=== PATIENT | female | born 1985 | race Caucasian/White ===

== ENCOUNTER 2022-08-12 16:19 | Inpatient (IN) | payer BC ==
[2022-08-12 17:00] LABS: #Basophils 0.1 thou/uL (0.0-0.2); #Lymphocytes 2.4 thou/uL (1.20-3.40); #Monocytes 0.8 thou/uL (0.11-0.59); #Neutrophils 11.3 thou/uL (1.40-6.50); %Basophils 0.6 % (0.0-1.0); %Eosinophils 0.2 % (0.0-10.0); %Lymphocytes 16.2 % (21.0-51.0); %Monocytes 5.7 % (0.0-10.0); %Neutrophils 77.3 % (42.0-75.0); Hemoglobin 12.4 g/dL (12.0-16.0); Mean Corpuscular Hemoglobin 29.9 pg (27.0-31.0); Mean Corpuscular Volume 90.7 fl (78.0-98.0); Mean Platelet Volume 7.7 fL (7.4-10.4); Platelet Count 274 10x3/uL (130-400); RBC Distribution Width 12.1 % (11.5-14.5); Red Blood Cell (RBC) Count 4.15 mill/uL (4.20-5.40); White Blood Cell (WBC) Count 14.6 10x3/uL (4.8-10.8)
[2022-08-12 17:11] LABS: INR-International Normal Ratio 0.9; Prothrombin Time 12.9 sec (12.0-14.7)
[2022-08-12 17:16] LABS: ALT (SGPT) 17 U/L (8-55); AST (SGOT) 17 U/L (5-34); Albumin 4.4 g/dL (3.5-5.0); Alkaline Phosphatase 49 U/L (40-110); Anion Gap 16 mmol/L (10-20); BUN (Urea Nitrogen) 21 mg/dL (7.0-18.7); Bilirubin, Total 0.3 mg/dL (0.2-1.2); Calc. Creatinine Clearance 0 mL/min (70-130); Calcium 9.3 mg/dL (7.8-10.44); Carbon Dioxide 20 mmol/L (22-29); Chloride 106 mmol/L (98-107); Estimated GFR 103; Globulin 2.7 g/dL (2.4-3.5); Glucose 159 mg/dL (70-105); Potassium 3.1 mmol/L (3.5-5.1); Protein, Total 7.1 g/dL (6.0-8.3); Sodium 139 mmol/L (136-145)
[2022-08-12 17:17] LABS: ALT (SGPT) 16 U/L (8-55); AST (SGOT) 19 U/L (5-34); Albumin 4.4 g/dL (3.5-5.0); Alkaline Phosphatase 48 U/L (40-110); Anion Gap 16 mmol/L (10-20); BUN (Urea Nitrogen) 23 mg/dL (7.0-18.7); Bilirubin, Total 0.3 mg/dL (0.2-1.2); Calc. Creatinine Clearance 0 mL/min (70-130); Calcium 9.3 mg/dL (7.8-10.44); Carbon Dioxide 19 mmol/L (22-29); Chloride 106 mmol/L (98-107); Estimated GFR 98; Globulin 2.7 g/dL (2.4-3.5); Glucose 161 mg/dL (70-105); Potassium 3.2 mmol/L (3.5-5.1); Protein, Total 7.1 g/dL (6.0-8.3); Sodium 138 mmol/L (136-145)
[2022-08-12] MEDS ORDERED: Ondansetron PF 4 MG/2 ML Vial ONE ×2 (17:21→17:40)
[2022-08-12] MEDS ORDERED: TETANUS, DIPHTHERIA TOX,ADULT (TDVAX) 0.5 ML VIAL IM ONE (17:30)
[2022-08-12] MEDS ORDERED: Dextrose 50% Abboject 50 ML SYRINGE SLOW IVP PRN (17:30)
[2022-08-12] MEDS ORDERED: hydrALAZINE 20 MG/ML VIAL SLOW IVP PRN (17:30)
[2022-08-12] MEDS ORDERED: Dextrose 5% in Water 1,000 ML IV PRN (17:30)
[2022-08-12] MEDS ORDERED: Dexamethasone 4 mg/ml Vial SLOW IVP SCH (17:45)
[2022-08-12] MEDS ORDERED: Acetaminophen/Codeine 30-300mg Tablet PO PRN (17:47)
[2022-08-12] MEDS ORDERED: levETIRAcetam 500 MG/5 ML VIAL ONE ×2 (17:48→21:41)
[2022-08-12] MEDS ORDERED: HYDROcodone/Acetaminophen 5/325 mg Tablet PO PRN (17:49)
[2022-08-12] MEDS ORDERED: Acetaminophen 500 MG TAB PO SCH (18:00)
[2022-08-12] MEDS ORDERED: Promethazine HCl 25 MG in Sodium Chloride 0.9% 50 ML IVPB SCH (18:00)
[2022-08-12] MEDS ORDERED: Acetaminophen 325 MG TAB PO SCH (18:45)
[2022-08-12 19:03] LABS: SARS-CoV-2 NAA Rapid Test Not Detected (NotDetected)
[2022-08-12] MEDS ORDERED: Acetaminophen 500 MG TAB ONE (19:07)
[2022-08-12] MEDS ORDERED: Boostrix 0.5 ML (Tdap) VIAL (>/=7 yrs of age) ONE (19:07)
[2022-08-12] MEDS ORDERED: Potassium Chloride 20 MEQ/100 ML PREMIX BAG ONE ×2 (19:07→21:28)
[2022-08-12] MEDS: Sodium Chloride 0.9% 1,000 ML IV SCH (19:21)
[2022-08-12] MEDS: Potassium Chloride 20 MEQ in Premix Bag 1 BAG IVPB SCH ×2 (19:25→21:33)
[2022-08-12] MEDS ORDERED: Famotidine/PF 20 mg/2ml Vial ONE (20:42)
[2022-08-12] MEDS: Famotidine/PF 20 mg/2ml Vial SLOW IVP SCH (20:50)
[2022-08-12] MEDS ORDERED: Promethazine HCl 12.5 MG in Sodium Chloride 0.9% 50 ML IVPB PRN (20:53)
[2022-08-12] MEDS ORDERED: levETIRAcetam in NS 500 MG in Premix Bag 1 BAG IVPB SCH (21:00)
[2022-08-12] MEDS: levETIRAcetam 500 MG/5 ML VIAL SLOW IVP SCH (21:52)
[2022-08-12] MEDS: Scopolamine 1.5 mg/72 hour Patch TD SCH (22:05)
[2022-08-12] MEDS: Acetaminophen 325 MG TAB PO SCH (23:11)
[2022-08-13] MEDS: Morphine 4 MG/ML VIAL SLOW IVP PRN ×2 (00:55→09:23)
[2022-08-13 04:05] LABS: #Lymphocytes 0.8 thou/uL (1.20-3.40); #Monocytes 0.6 thou/uL (0.11-0.59); #Neutrophils 11.2 thou/uL (1.40-6.50); %Eosinophils 0.1 % (0.0-10.0); %Lymphocytes 6.3 % (21.0-51.0); %Neutrophils 88.6 % (42.0-75.0); Hemoglobin 11.9 g/dL (12.0-16.0); Mean Corpuscular HGB CONC 31.9 g/dL (32.0-36.0); Mean Corpuscular Hemoglobin 29.2 pg (27.0-31.0); Mean Corpuscular Volume 91.4 fl (78.0-98.0); Mean Platelet Volume 8.9 fL (7.4-10.4); Platelet Count 207 10x3/uL (130-400); RBC Distribution Width 12.1 % (11.5-14.5); Red Blood Cell (RBC) Count 4.09 mill/uL (4.20-5.40); White Blood Cell (WBC) Count 12.6 10x3/uL (4.8-10.8)
[2022-08-13 04:25] LABS: Anion Gap 15 mmol/L (10-20); BUN (Urea Nitrogen) 14 mg/dL (7.0-18.7); Calc. Creatinine Clearance 188 mL/min (70-130); Calcium 8.7 mg/dL (7.8-10.44); Carbon Dioxide 17 mmol/L (22-29); Chloride 106 mmol/L (98-107); Estimated GFR 118; Glucose 122 mg/dL (70-105); Magnesium 1.9 mg/dL (1.6-2.6); Potassium 3.9 mmol/L (3.5-5.1); Sodium 134 mmol/L (136-145)
[2022-08-13 04:27] LABS: Phosphorus 3.2 mg/dL (2.3-4.7)
[2022-08-13] MEDS: Sodium Chloride 0.9% 1,000 ML IV SCH ×2 (04:44→08:58)
[2022-08-13] MEDS: Acetaminophen 325 MG TAB PO SCH ×3 (06:40→17:33)
[2022-08-13] MEDS: Ondansetron PF 4 MG/2 ML Vial IVP PRN ×3 (06:45→22:24)
[2022-08-13] MEDS: Famotidine/PF 20 mg/2ml Vial SLOW IVP SCH ×2 (09:23→22:24)
[2022-08-13] MEDS: levETIRAcetam 500 MG/5 ML VIAL SLOW IVP SCH ×2 (09:32→22:24)
[2022-08-13] MEDS: Acetaminophen/Codeine 30-300mg Tablet PO SCH ×2 (17:32→22:30)
[2022-08-14] MEDS: Acetaminophen/Codeine 30-300mg Tablet PO SCH ×6 (02:15→21:08)
[2022-08-14] MEDS: Acetaminophen 325 MG TAB PO SCH ×4 (02:16→16:57)
[2022-08-14] MEDS: levETIRAcetam 500 MG TAB PO SCH ×2 (08:53→21:08)
[2022-08-14] MEDS: Ondansetron PF 4 MG/2 ML Vial IVP PRN (13:09)
[2022-08-15] MEDS: Acetaminophen 325 MG TAB PO SCH ×4 (00:15→18:03)
[2022-08-15] MEDS: Acetaminophen/Codeine 30-300mg Tablet PO SCH ×6 (00:54→20:35)
[2022-08-15 05:30] VITALS: BMI 32.4
[2022-08-15] MEDS: levETIRAcetam 500 MG TAB PO SCH ×2 (09:31→20:35)
[2022-08-15] MEDS: Ondansetron PF 4 MG/2 ML Vial IVP PRN (09:33)
[2022-08-15] MEDS: Dexamethasone 4 mg/ml Vial SLOW IVP SCH ×2 (11:30→17:19)
[2022-08-15] MEDS ORDERED: Dexamethasone 4 mg/ml Vial SLOW IVP SCH (12:00)
[2022-08-15] MEDS: Scopolamine 1.5 mg/72 hour Patch TD SCH (20:36)
[2022-08-16] MEDS: Acetaminophen/Codeine 30-300mg Tablet PO SCH ×4 (00:16→13:18)
[2022-08-16] MEDS: Acetaminophen 325 MG TAB PO SCH ×3 (00:16→13:19)
[2022-08-16] MEDS: Dexamethasone 4 mg/ml Vial SLOW IVP SCH ×3 (00:17→14:06)
[2022-08-16] MEDS ORDERED: FLU VACC QS2022-23(6MOS UP)/PF 60 MCG/0.5 ML SYRINGE IM ONE (09:00)
[2022-08-16] MEDS: levETIRAcetam 500 MG TAB PO SCH (09:14)
[2022-08-16 12:37] VITALS: BP 147/80; TEMP 97
[2022-08-16] MEDS ORDERED: Dexamethasone 4 MG TAB PO SCH ×2 (14:00→18:00)
[2022-08-16] MEDS ORDERED: Dexamethasone 4 mg/ml Vial SLOW IVP SCH (18:00)
== END 2022-08-16 16:49 | disposition home or self-care (01) | DRG 87 ==
LOC: ERS 16:19 → ERHOLD 17:34 → IMCU/EMU 22:23 → SJJU 08-14 20:14
PROVIDERS: ADMIT Specialist; ATTEND Surgery
DX: S06.6X0A Traumatic subarachnoid hemorrhage without loss of consciousness, initial encounter (principal); S06.5X0A Traumatic subdural hemorrhage without loss of consciousness, initial encounter; S02.19XA Other fracture of base of skull, initial encounter for closed fracture; S06.2X0A Diffuse traumatic brain injury without loss of consciousness, initial encounter; G93.89 Other specified disorders of brain; R40.2362 Coma scale, best motor response, obeys commands, at arrival to emergency department; R40.2132 Coma scale, eyes open, to sound, at arrival to emergency department; R40.2242 Coma scale, best verbal response, confused conversation, at arrival to emergency department; V00.211A Fall from ice-skates, initial encounter; Z88.0 Allergy status to penicillin; Z90.710 Acquired absence of both cervix and uterus
CPT/HCPCS: 36415; 70450; 71045; 72125; 80048; 80053; 83735; 84100; 85025; 85610; 85730; 90714; 90715; 96365; 96375; J1100; J1953; J2270; J2405; J2550; J3480; J7050; J8540; S0028

== ENCOUNTER 2022-09-07 12:50 | Outpatient (CLI) | payer BC | END 2022-09-07 12:51 | disposition home or self-care (01) | LOC: SCSCT 12:50 | PROVIDERS: ATTEND Physician Assistant | DX: G93.89 Other specified disorders of brain (principal); I61.1 Nontraumatic intracerebral hemorrhage in hemisphere, cortical; H74.8X1 Other specified disorders of right middle ear and mastoid; S02.19XA Other fracture of base of skull, initial encounter for closed fracture | CPT/HCPCS: 70450 ==